=== PATIENT | female | born 1935 | race Hispanic/Latino ===

== ENCOUNTER → 2021-03-20 | Outpatient (CLI) | payer OTHER ==
[~2021-03-20] MED LIST: CIME400T PO; LOSA50TA64 PO; SIMV-46 PO
== END | disposition home or self-care (01) ==
LOC: OIH 10:37
PROVIDERS: ATTEND Internal Medicine Cardiovascular Disease
DX: R91.1 Solitary pulmonary nodule (principal); I70.0 Atherosclerosis of aorta; R01.1 Cardiac murmur, unspecified
CPT/HCPCS: 71046